=== PATIENT | female | born 1975 | race Caucasian/White ===

== ENCOUNTER 2017-07-05 07:35 | Emergency (ER) | payer SELFPAY ==
[2017-07-05 08:39] LABS: APPEARANCE,URINE CLEAR; BILIRUBIN,URINE NEGATIVE (NEGATIVE); GLUCOSE, URINE NEGATIVE (NEGATIVE); KETONES,URINE NEGATIVE (NEGATIVE); LEUKOCYTE ESTERASE,URINE MODERATE (NEGATIVE); NITRITE,URINE POSITIVE (NEGATIVE); PROTEIN,URINE 30 mg/dL (NEGATIVE); URINE SPECIFIC GRAVITY 1.024
--- NOTE | 2017-07-05 09:39 | ER Document Report ---
ED GI/ - General Chief Complaint: Pain With Urination Stated Complaint: PAIN WITH URINATION Time Seen by Provider: 07/05/17 08:01 Mode of Arrival: Ambulatory Information source: Patient Notes: Patient is a 42-year-old female comes emergency room complaining of urinary problems. Patient states that started last at which time she called her physician she was put on Bactrim for 3 days and did not get any better. Previous to this patient had been on Augmentin 875 twice daily for 14 days for a sinus problem. She stopped that antibiotic 2 days prior to starting the Bactrim. She has had a total hysterectomy but still has her gallbladder and her appendix. Patient describes this as a very burning sensation as well as suprapubic discomfort and pain calls it like labor pains. She denies any fever. TRAVEL OUTSIDE OF THE [place] IN LAST 30 DAYS: No - HPI Patient complains to provider of: Dysuria, Urinary retention. No: Diarrhea, Flank pain, Hematuria, Pelvic pain Onset: Last week Timing/Duration: Gradual Quality of pain: Burning, Cramping, Sharp, Stabbing Severity at maximum: Moderate Severity in ED: Moderate Pain Level: 3 Location: Suprapubic, Pelvis. No: LUQ, LLQ, RUQ, RLQ, Left flank, Right flank, Low back, Vaginal, Vulvar Vaginal bleeding (Compared to normal period): None Sexual history: Active Associated symptoms: Hematuria, Urinary hesitancy, Urinary frequency, Urinary retention, Urinary urgency Exacerbated by: Other - Urination Relieved by: Denies Similar symptoms previously: Yes Recently seen / treated by doctor: Yes - Related Data Allergies/Adverse Reactions: codeine [Codeine] Allergy (Verified 07/05/17 07:38) Past Medical History - General Information source: Patient - Social History Smoking Status: Never Smoker Cigarette use (# per day): No Chew tobacco use (# tins/day): No Smoking Education Provided: No Frequency of alcohol use: None Drug Abuse: None Lives with: Family Family History: Reviewed & Not Pertinent Patient has suicidal ideation: No Patient has homicidal ideation: No - Past Medical History Cardiac Medical History: Reports: Hx Hypertension Pulmonary Medical History: Reports: None Renal/ Medical History: Denies: Hx Peritoneal Dialysis Past Surgical History: Reports: Hx Hysterectomy - Immunizations Immunizations up to date: Yes Hx Diphtheria, Pertussis, Tetanus Vaccination: Yes Review of Systems - Review of Systems Constitutional: No symptoms reported EENT: No symptoms reported Cardiovascular: No symptoms reported Respiratory: No symptoms reported Gastrointestinal: No symptoms reported Genitourinary: Burning, Dysuria, Frequency, Hematuria, Urgency Female Genitourinary: No symptoms reported Musculoskeletal: No symptoms reported Skin: No symptoms reported Hematologic/Lymphatic: No symptoms reported Neurological/Psychological: No symptoms reported -: Yes All other systems reviewed and negative Physical Exam - Vital signs Vitals: Temp Pulse Resp BP Pulse Ox 98.4 F 103 H 14 148/103 H 95 07/05/17 07:39 07/05/17 07:39 07/05/17 07:39 07/05/17 07:39 07/05/17 07:39 Interpretation: Tachycardic - General General appearance: Alert, Other - Appears uncomfortable - HEENT Head: Normocephalic, Atraumatic Eyes: Normal - Respiratory Respiratory status: No respiratory distress Breath sounds: Normal. No: Rales, Rhonchi, Stridor, Wheezing - Cardiovascular Rhythm: Tachycardia Heart sounds: Normal auscultation Murmur: No - Abdominal Inspection: Morbidly Obese Distension: No distension Bowel sounds: Normal Tenderness: Nontender Organomegaly: No organomegaly - Genitourinary Notes: Patient denied any kind of vaginal discharge only the dysuria type of presentation. Palpation of the suprapubic area shows moderate tenderness in that location only. There is no tenderness in the abdominal region of the appendix at all. - Neurological Neuro grossly intact: Yes Cognition: Normal Orientation: AAOx4 Kim Coma Scale Eye Opening: Spontaneous [place] Coma Scale Verbal: Oriented Kim Coma Scale Motor: Obeys Commands [place] Coma Scale Total: 15 Speech: Normal Course - Vital Signs Vital signs: Temp Pulse Resp BP Pulse Ox 98.4 F 103 H 14 148/103 H 95 07/05/17 07:39 07/05/17 07:39 07/05/17 07:39 07/05/17 07:39 07/05/17 07:39 - Laboratory Laboratory results interpreted by me: 07/05/17 08:15 Urine Protein 30 H Urine Blood SMALL H Urine Nitrite POSITIVE H Urine Urobilinogen 4.0 H Ur Leukocyte Esterase MODERATE H - Transfer of Care Notes: 07/05/17 09:44 Patient's urine came back positive with nitrites and leukocytes we are going to go and treat patient with an antibiotic at this time I have chosen Macrobid since patient had a evidently resistant to Bactrim. We are culturing the urine and I have informed patient we will contact her if this antibiotic does not cover the bacterial that she has presentation of. Discharge - Discharge Disposition: HOME, SELF-CARE Instructions: Urinary Tract Infection ([facility]) Additional Instructions: Home rest. Medications prescribed. As of informed you I am writing you a Diflucan pill since you have been on antibiotics so much one pill should help stop you from getting a yeast infection. I am also placing you on Macrobid which is an antibiotic and should cover the presentation you are given us for UTI. If it continues on her have increasing discomfort he spike a fever or pain radiates more to the back return to ER for a recheck. Prescriptions: Fluconazole [Diflucan] 150 mg PO ONCE PRN #1 tablet PRN Reason: Nitrofurantoin Monohyd/M-Cryst [Macrobid 100 mg Capsule] 100 mg PO BID #20 capsule Nitrofurantoin/Nitrofuran Mac [Macrobid 100 mg Capsule] 1 tab PO BID #20 capsule Referrals: BRITNEY MALIK MD [Primary Care Provider] - Follow up as needed
[2017-07-05 09:57] VITALS: BP 142/89
== END 2017-07-05 10:20 | disposition home or self-care (01) ==
LOC: ER 07:35
DX: N39.0 Urinary tract infection, site not specified (principal); R33.9 Retention of urine, unspecified; R30.0 Dysuria
CPT/HCPCS: 81001; 87086; 87088; 87186; 99283

== ENCOUNTER 2017-07-17 11:15 | Emergency (ER) | payer SELFPAY ==
[2017-07-17 12:56] VITALS: BP 153/104
--- NOTE | 2017-07-17 13:04 | ER Document Report ---
ED Flu Like - General Chief Complaint: Cold Symptoms Stated Complaint: FEVER/SORE THROAT Time Seen by Provider: 07/17/17 12:41 Mode of Arrival: Ambulatory Information source: Patient Notes: 42-year-old female presents to ED for cough cold congestion ear pain and body aches fever for a week. TRAVEL OUTSIDE OF THE [place] IN LAST 30 DAYS: No - HPI Onset: Last week Quality of pain: Achy, Other Severity: Moderate Pain Level: 3 CO exposure: No Associated symptoms: Body/muscle aches, Chills, Nonproductive cough, Fever, Rhinnorhea, Sore throat Similar symptoms previously: Yes Recently seen / treated by doctor: No - Related Data Allergies/Adverse Reactions: codeine [Codeine] Allergy (Verified 07/17/17 11:35) Past Medical History - General Information source: Patient - Social History Smoking Status: Never Smoker Cigarette use (# per day): No Chew tobacco use (# tins/day): No Smoking Education Provided: No Frequency of alcohol use: Social Drug Abuse: None Occupation: [employer] Lives with: Family Family History: Arthritis, CAD, CVA, DM, Hyperlipidemia, Hypertension, Malignancy, Thyroid Disfunction. denies: COPD Patient has suicidal ideation: No Patient has homicidal ideation: No - Past Medical History Cardiac Medical History: Reports: Hx Hypertension Pulmonary Medical History: Reports: Hx Pneumonia EENT Medical History: Reports: None Neurological Medical History: Reports: None Endocrine Medical History: Reports: None Renal/ Medical History: Reports: Other - Endometriosis Malignancy Medical History: Reports: None GI Medical History: Reports: None Musculoskeltal Medical History: Reports Hx Musculoskeletal Trauma Skin Medical History: Reports None Psychiatric Medical History: Reports: None, Hx Anxiety Traumatic Medical History: Reports: Hx Fractures - Fingers foot wrist clavicle and toes Infectious Medical History: Reports: None Past Surgical History: Reports: Hx Hysterectomy - Immunizations Immunizations up to date: Yes Hx Diphtheria, Pertussis, Tetanus Vaccination: Yes Review of Systems - Review of Systems Constitutional: Chills, Fever, Recent illness EENT: Nose congestion, Sinus pressure, Throat pain Cardiovascular: No symptoms reported Respiratory: Cough Gastrointestinal: No symptoms reported Genitourinary: No symptoms reported Female Genitourinary: No symptoms reported Musculoskeletal: No symptoms reported Skin: No symptoms reported Hematologic/Lymphatic: No symptoms reported Neurological/Psychological: No symptoms reported Physical Exam - Vital signs Vitals: Temp Pulse Resp BP Pulse Ox 98.9 F 109 H 16 154/106 H 96 07/17/17 11:31 07/17/17 11:31 07/17/17 11:31 07/17/17 11:31 07/17/17 11:31 Interpretation: Normal - General General appearance: Appears well, Alert - HEENT Head: Normocephalic, Atraumatic Eyes: Normal Pupils: PERRL Ears: Normal External canal: Normal Tympanic membrane: Normal Sinus: Tenderness Nasal: Purulent discharge, Swelling Mouth/Lips: Normal Mucous membranes: Normal Pharynx: Post nasal drainage. No: Erythema, Exudate, Tonsillar hypertrophy Neck: Normal - Respiratory Respiratory status: No respiratory distress Chest status: Nontender Breath sounds: Normal Chest palpation: Normal - Cardiovascular Rhythm: Regular Heart sounds: Normal auscultation Murmur: No - Abdominal Inspection: Normal Distension: No distension Bowel sounds: Normal Tenderness: Nontender Organomegaly: No organomegaly - Back Back: Normal, Nontender - Extremities General upper extremity: Normal inspection, Nontender, Normal color, Normal ROM , Normal temperature General lower extremity: Normal inspection, Nontender, Normal color, Normal ROM , Normal temperature, Normal weight bearing. No: Cresencio's sign - Neurological Neuro grossly intact: Yes Cognition: Normal Orientation: AAOx4 Kim Coma Scale Eye Opening: Spontaneous Kim Coma Scale Verbal: Oriented Kim Coma Scale Motor: Obeys Commands Kim Coma Scale Total: 15 Speech: Normal Motor strength normal: LUE, RUE, LLE, RLE Sensory: Normal - Psychological Associated symptoms: Normal affect, Normal mood - Skin Skin Temperature: Warm Skin Moisture: Dry Skin Color: Normal Course - Re-evaluation Re-evalutation: 07/17/17 12:56 Assessment consistent with a upper respiratory infection with a viral sore throat. Lungs are clear to auscultation. Patient states she has been on antibiotics for a sinus infection and for UTI recently. Patient states she took took Kala-Britton cough last night and does not think she taken her blood pressure medication today. - Vital Signs Vital signs: Temp Pulse Resp BP Pulse Ox 97.9 F 94 16 153/104 H 97 07/17/17 12:50 07/17/17 12:50 07/17/17 11:31 07/17/17 12:50 07/17/17 12:50 Discharge - Discharge Clinical Impression: Viral sore throat URI (upper respiratory infection) Qualifiers: URI type: unspecified URI Qualified Code(s): J06.9 - Acute upper respiratory infection, unspecified Condition: Stable Disposition: HOME, SELF-CARE Additional Instructions: SORE THROAT: Sore throats may be caused by viruses, bacteria, or fungi. Most are due to a virus, and must get better on their own. Bacterial sore throats, particularly those due to "strep," need treatment with antibiotics. If an antibiotic is prescribed, be sure to take the medication for a full 10 days. Failure to take the antibiotic can result in complications such as rheumatic fever. Sometimes, an injection of antibiotics is given instead of pills or liquid. This single "shot" is equal in effectiveness to the oral medication. To relieve symptoms, take acetaminophen for pain. Sip clear liquids frequently, or eat popsicles or ice chips. Anesthetic sprays or lozenges may help. Make sure the air in the room is not too dry. Avoid using decongestants or antihistamines. Call the doctor if there is no improvement in two days, or if you have difficulty breathing, increasing throat pain, high fever, rash, or frequent vomiting. UPPER RESPIRATORY ILLNESS: You have a viral infection of the respiratory passages -- a "cold." This common infection causes nasal congestion, drainage, and often sore throat and cough. It is highly contagious. The disease usually lasts about 10 to 14 days. There is no "cure" for the viral infection -- it must run its course. If there is a complication, such as bacterial infection in the nose, sinuses, middle ear, or bronchial tubes, antibiotics may be required. The antibiotics won't affect the virus. Drink plenty of fluids. A humidifier may help. An expectorant medication or decongestant may make you more comfortable. Use acetaminophen or ibuprofen for fever or aches. See the doctor if fever persists over two days, if there is any significant worsening of your symptoms, or if you simply fail to improve as expected. USE OF ACETAMINOPHEN (Tylenol): Acetaminophen may be taken for pain relief or fever control. It's much safer than aspirin, offering a wider range of "safe" dosages. It is safe during . Some brand names are Tylenol, Panadol, Datril, Anacin 3, Tempra, and Liquiprin. Acetaminophen can be repeated every four hours. The following are maximum recommended dosages: >89 pounds or adults 650 mg to 900 mg Acetaminophen can be repeated every four hours. Maximum dose not to exceed 4000 mg a day. FOLLOW-UP CARE: If you have been referred to a physician for follow-up care, call the physician s office for an appointment as you were instructed or within the next two days. If you experience worsening or a significant change in your symptoms, notify the physician immediately or return to the Emergency Department at any time for re-evaluation. Please follow-up by telephone with your primary doctor today for your blood pressure is elevated Forms: Elevated Blood Pressure, Return to Work
== END 2017-07-17 13:35 | disposition home or self-care (01) ==
LOC: ER 11:15
DX: J06.9 Acute upper respiratory infection, unspecified (principal); R50.9 Fever, unspecified; J02.9 Acute pharyngitis, unspecified; H92.09 Otalgia, unspecified ear; R05 Cough
CPT/HCPCS: 99283

== ENCOUNTER 2019-10-01 08:04 | Day surgery (SDC) | payer BC ==
[2019-09-27 11:12] LABS: APPEARANCE,URINE CLEAR; BILIRUBIN,URINE NEGATIVE (NEGATIVE); COLOR,URINE YELLOW; GLUCOSE, URINE NEGATIVE (NEGATIVE); KETONES,URINE NEGATIVE (NEGATIVE); LEUKOCYTE ESTERASE,URINE NEGATIVE (NEGATIVE); NITRITE,URINE NEGATIVE (NEGATIVE); PROTEIN,URINE NEGATIVE (NEGATIVE); UROBILINOGEN,URINE NEGATIVE mg/dL (<2.0)
[2019-09-27 11:33] LABS: HEMATOCRIT 36.7 % (36.0-47.0); HEMOGLOBIN 13.1 g/dL (12.0-15.5); MEAN CORPUSCULAR HEMOGLOBIN 32.3 pg (27.0-33.4); MEAN CORPUSCULAR HGB CONC 35.6 g/dL (32.0-36.0); MEAN CORPUSCULAR VOLUME 91 fl (80-97); PLATELET COUNT 359 10^3/uL (150-450); RED BLOOD COUNT 4.06 10^6/uL (3.72-5.28); WHITE BLOOD COUNT 10.6 10^3/uL (4.0-10.5)
--- NOTE | 2019-09-27 14:49 | EKG REPORT ---
SEVERITY:- BORDERLINE ECG - SINUS RHYTHM PROBABLE LEFT ATRIAL ABNORMALITY BORDERLINE T ABNORMALITIES, INFERIOR LEADS : Confirmed by: Bridgett Zepeda MD 27-Sep-2019 14:49:05
[~2019-10-01 08:04] MED LIST: LACTATED RINGERS 1000 ML IV PRN; LIDOCAINE 0.5% INJ-PF (5 MG/ML) 50 ML SDV SUBCUT PRN
[2019-10-01] MEDS ORDERED: MIDAZOLAM 2 MG/2 ML INJ ONE ×2 (08:46→11:05)
[2019-10-01] MEDS ORDERED: SCOPOLAMINE HYDROBROMIDE 1.5 MG PATCH.TD72 ONE (08:46)
[2019-10-01] MEDS ORDERED: FAMOTIDINE INJ/PF 20 MG/2 ML SDV IV ONE (08:47)
[2019-10-01] MEDS ORDERED: RINGERS SOLUTION,LACTATED 500 ML IV ONE (09:00)
[2019-10-01] MEDS ORDERED: SUCCINYLCHOLINE CHLORIDE INJ 200 MG/10 ML VIAL ONE (09:53)
[2019-10-01] MEDS ORDERED: GLYCOPYRROLATE 1 MG/5 ML VIAL ONE (09:53)
[2019-10-01] MEDS ORDERED: VECURONIUM BROMIDE INJ 10 MG VIAL IV ONE (09:53)
[2019-10-01] MEDS ORDERED: NEOSTIGMINE METHYLSULFATE 10 MG/10 ML VIAL ONE (09:53)
[2019-10-01] MEDS ORDERED: KETOROLAC TROMETHAMINE 60 MG/2 ML SDV ONE (11:05)
[2019-10-01] MEDS ORDERED: ONDANSETRON HCL INJ/PF 4 MG/2 ML SDV ONE (11:05)
[2019-10-01] MEDS ORDERED: FENTANYL CITRATE INJ/PF 250 MCG/5 ML AMPULE ONE (11:05)
[2019-10-01] MEDS ORDERED: PROPOFOL INJ 200 MG/20 ML VIAL IV ONE (11:05)
[2019-10-01] MEDS ORDERED: DEXAMETHASONE SOD PHOSPHATE INJ 4 MG/1 ML VIAL ONE (11:05)
[2019-10-01] MEDS ORDERED: FENTANYL CITRATE INJ/PF 100 MCG/2 ML AMPUL IV PRN ×3 (11:56)
[2019-10-01] MEDS ORDERED: DIPHENHYDRAMINE HCL 50 MG/ML VIAL IV PRN (11:56)
[2019-10-01] MEDS ORDERED: MEPERIDINE HCL/PF INJ 25 MG/1 ML DISP.SYRIN IV PRN (11:56)
[2019-10-01] MEDS ORDERED: PROMETHAZINE HCL INJ 25 MG/1 ML VIAL IV PRN ×2 (11:56)
--- NOTE | 2019-10-01 12:07 | Operative Report ---
Operative Report DATE OF SURGERY: 10/01/19 PREOPERATIVE DIAGNOSIS: ADI POSTOPERATIVE DIAGNOSIS: Same OPERATION: TVT using Ita sling SURGEON: SEGUNDO OLIVEIRA ANESTHESIA: GA TISSUE REMOVED OR ALTERED: None ESTIMATED BLOOD LOSS: 10 cc PROCEDURE: Patient placed in a dorsal lithotomy position prepped draped sterile fashion. Speculum placed and the vaginal mucosa was grasped centimeter below the urethra. Incision was made in the midline extended to approximately centimeters underlying vesicovaginal tissue was bluntly sharply divided until the posterior aspect of the symptoms could be palpated. Puncture moves made on the months 1 cm lateral to the midline. The needles then passed down from the top and out through the vaginal defect. Cystoscopy then performed with no foreign bodies being noted. Ita sling was placed on the ends of the needles and pulled back through a pair of Toro scissors were kept under the urethra for tension-free holly cement. Vaginal defect was closed with running suture of 2-0 Vicryl. The excess sling was severed at the skin line above the symphysis. Wounds were closed using Dermabond. The [place] was discontinued. Her urine remained clear throughout the procedure.
[2019-10-01] MEDS ORDERED: OXYCODONE-ACETAMINOPHEN 5-325 MG TABLET PO PRN ×2 (12:47→13:00)
[2019-10-01] MEDS ORDERED: ONDANSETRON HCL 8 MG TABLET PO PRN (13:00)
[2019-10-01] MEDS ORDERED: PHENAZOPYRIDINE HCL 200 MG TABLET ONE (13:05)
[2019-10-01] MEDS ORDERED: IBUPROFEN 800 MG TABLET PO SCH (14:00)
[2019-10-01] MEDS ORDERED: PHENAZOPYRIDINE HCL 200 MG TABLET PO ONE (14:30)
[2019-10-01 15:31] VITALS: BP 155/92
== END 2019-10-01 14:40 | disposition home or self-care (01) ==
LOC: OROUT 08:04
PROVIDERS: ATTEND Obstetrics & Gynecology Gynecology
DX: N39.3 Stress incontinence (female) (male) (principal); I10 Essential (primary) hypertension; Z79.899 Other long term (current) drug therapy; Z79.82 Long term (current) use of aspirin; I49.3 Ventricular premature depolarization; E66.9 Obesity, unspecified; Z88.5 Allergy status to narcotic agent
CPT/HCPCS: 93005; 86900; 86901; 36415 ×2; 86850; 84132; 85027; 81001; 93010; 57288; C1781; J2250; J1100; J1885; J3010; J3490 ×3; J2710; J0330; J2405; J2704; S0028; 942